=== PATIENT | male | born 1990 | race Caucasian/White ===

== ENCOUNTER 2019-06-02 07:23 | Emergency (ER) | payer BC ==
[2019-06-02 07:38] VITALS: BP 132/74; PULSE 75; RESP 18; TEMP 98.3
--- NOTE | 2019-06-02 07:46 | ED ---
General Adult HPI - General Chief complaint: Abdominal Pain Stated complaint: ABDOMINAL PAIN Time Seen by Provider: 06/02/19 07:25 Source: patient, RN notes reviewed Mode of arrival: ambulatory Limitations: no limitations - History of Present Illness Initial comments: This is a 29-year-old male who presents emergency Department complaining of abdominal cramping starting yesterday. Patient states he has also had diarrhea during that timeframe. Patient denies any nausea vomiting. Patient denies any fever chills. Patient states the pain is definitely worse right after he eats. Patient also states the pain is relieved with having defecated. Patient denies any abdominal pain currently. Patient denies any chest pain difficulty breathing first breath per patient denies any dysuria hematuria urinary frequency. Patient denies any back pain. - Related Data Allergies Allergy/AdvReac Type Severity Reaction Status Date / Time No Known Allergies Allergy Verified 06/02/19 07:25 Review of Systems ROS Statement: Those systems with pertinent positive or pertinent negative responses have been documented in the HPI. ROS Other: All systems not noted in ROS Statement are negative. Past Medical History Past Medical History: No Reported History History of Any Multi-Drug Resistant Organisms: None Reported Additional Past Surgical History / Comment(s): ACL repair L knee Past Psychological History: No Psychological Hx Reported Smoking Status: Never smoker Past Alcohol Use History: None Reported Past Drug Use History: Marijuana General Exam - General Exam Comments Initial Comments: GENERAL: Patient is well-developed and well-nourished. Patient is nontoxic and well- hydrated and is in mild distress. ENT: Neck is soft and supple. No significant lymphadenopathy is noted. Oropharynx is clear. Moist mucous membranes. Neck has full range of motion without eliciting any pain. EYES: The sclera were anicteric and conjunctiva were pink and moist. Extraocular movements were intact and pupils were equal round and reactive to light. Eyelids were unremarkable. PULMONARY: Unlabored respirations. Good breath sounds bilaterally. No audible rales rhonchi or wheezing was noted. CARDIOVASCULAR: There is a regular rate and rhythm without any murmurs gallops or rubs. ABDOMEN: Soft and nontender with normal bowel sounds. SKIN: Skin is clear with no lesions or rashes and otherwise unremarkable. NEUROLOGIC: Patient is alert and oriented x3. Cranial nerves II through XII are grossly intact. Motor and sensory are also intact. Normal speech, volume and content. Symmetrical smile. MUSCULOSKELETAL: Normal extremities with adequate strength and full range of motion. LYMPHATICS: No significant lymphadenopathy is noted PSYCHIATRIC: Normal psychiatric evaluation. Limitations: no limitations Course Vital Signs 06/02/19 07:25 Temperature 98.3 F Pulse Rate 75 Respiratory 18 Rate Blood Pressure 132/74 O2 Sat by Pulse 97 Oximetry Disposition Clinical Impression: Acute diarrhea, Abdominal cramping Disposition: HOME SELF-CARE Condition: Good Instructions (If sedation given, give patient instructions): Acute Diarrhea (ED) Is patient prescribed a controlled substance at d/c from ED?: No Referrals: None,Stated [Primary Care Provider] - 1-2 days Time of Disposition: 07:45
== END 2019-06-02 08:00 | disposition home or self-care (01) ==
LOC: EC 07:23
DX: R19.7 Diarrhea, unspecified (principal)
CPT/HCPCS: 99283

== ENCOUNTER 2019-12-01 10:16 | Emergency (ER) | payer BC, OTHER ==
[2019-12-01 10:31] VITALS: BP 156/90; PULSE 87; RESP 16; TEMP 98
[2019-12-01] MEDS ORDERED: DIPH,PERTUS(ACELL)TETVAC-LF 0.5 ML VIAL IM ONE (10:45)
[2019-12-01] MEDS ORDERED: LIDOCAINE 1% INJ 10MG/ML (20 ML MDV) SQ ONE (10:45)
--- NOTE | 2019-12-01 10:48 | ED ---
Wound/Laceration HPI - General Chief Complaint: Wound/Laceration Stated Complaint: right arm laceration-[facility] Time Seen by Provider: 12/01/19 10:40 Source: patient Mode of arrival: ambulatory Limitations: no limitations - History of Present Illness Initial Comments: Patient is a 29-year-old male presenting to the emergency Department with complaints of a laceration to his right forearm. Patient states she was at work when he slipped and cut his right proximal forearm/elbow on a thin piece of metal. Patient is not sure of his last tetanus vaccine. He is not on blood thinners. Bleeding is controlled at this time with a bandage and wrapped. Patient denies any other injuries today. Upon arrival to the ER his vitals are stable. - Related Data Previous Rx's Medication Instructions Recorded Cephalexin [Keflex] 500 mg PO BID 3 Days #6 cap 12/01/19 Allergies Allergy/AdvReac Type Severity Reaction Status Date / Time No Known Allergies Allergy Verified 12/01/19 10:31 Review of Systems ROS Statement: Those systems with pertinent positive or pertinent negative responses have been documented in the HPI. ROS Other: All systems not noted in ROS Statement are negative. Past Medical History Past Medical History: No Reported History History of Any Multi-Drug Resistant Organisms: None Reported Additional Past Surgical History / Comment(s): ACL repair L knee Past Psychological History: No Psychological Hx Reported Smoking Status: Never smoker Past Alcohol Use History: None Reported Past Drug Use History: Marijuana General Exam - General Exam Comments Initial Comments: GENERAL: Well-appearing, well-nourished and in no acute distress. HEAD: Atraumatic, normocephalic. EYES: Pupils equal round and reactive to light, extraocular movements intact, sclera anicteric, conjunctiva are normal. ENT: Moist mucous membranes. NECK: Normal range of motion, supple without lymphadenopathy or JVD. LUNGS: Breath sounds clear to auscultation bilaterally and equal. No wheezes rales or rhonchi. HEART: Regular rate and rhythm without murmurs, rubs or gallops. ABDOMEN: Soft, nontender, normoactive bowel sounds. No guarding, no rebound. No masses appreciated. EXTREMITIES: Patient has full right elbow range of motion. Sensation is equal and bilateral. No pitting or edema. No clubbing or cyanosis. SKIN: Warm, Dry, normal turgor, no rashes. Patient has a 6 cm laceration to the dorsal aspect of the proximal right forearm, just distal to the elbow joint. No tendon/muscle involvement. Limitations: no limitations Course Vital Signs 12/01/19 10:29 Temperature 98 F Pulse Rate 87 Respiratory 16 Rate Blood Pressure 156/90 O2 Sat by Pulse 98 Oximetry Procedures - Laceration Laceration #1 Consent Obtained: verbal consent Indication: laceration Site: upper extremity (Right forearm) Size (cm): 6 Description: linear Depth: simple, single layer Anesthetic Used: lidocaine 1% Anesthesia Technique: local infiltration Amount (mls): 4 Pre-repair: irrigated extensively (1 L sterile water.) Type of Sutures: nylon, vicryl Size of Sutures: 4-0 Number of Sutures: 11 (3 internal Vicryl sutures, 8 external nylon sutures, total of 11) Technique: simple, interrupted Patient Tolerated Procedure: well Medical Decision Making - Medical Decision Making Patient is a 29-year-old male presenting with a 6 cm laceration to the dorsal aspect of the right proximal forearm, just distal to the right elbow joint. Bleeding is controlled this time. Tetanus shot was updated today. Patient's wound was irrigated with 1 L of sterile water. Patient's wound was closed with 3 internal 4-0, Vicryl sutures, 8 external 4-0 nylon sutures. Patient tolerate procedure well. Patient's wound was bandaged. There is no active bleeding at this time. Patient is stable for discharge. Patient will be started on Keflex. He is in agreement with this plan of care. Sutures need to removed in 7-10 days. Return parameters were discussed with the patient and he verbalized understanding. Case discussed with Dr. Caceres. Disposition Clinical Impression: Laceration of right forearm Disposition: HOME SELF-CARE Condition: Stable Instructions (If sedation given, give patient instructions): Care For Your Stitches (ED) Additional Instructions: Please return to the Emergency Department if symptoms worsen or any other concerns. Stitches need to removed in 7-10 days. Keep area dry. Cover while working. Take antibiotics as prescribed. Prescriptions: Cephalexin [Keflex] 500 mg PO BID 3 Days #6 cap Is patient prescribed a controlled substance at d/c from ED?: No Referrals: None,Stated [Primary Care Provider] - 1-2 days
--- NOTE | 2019-12-01 11:15 | XR ---
EXAMINATION TYPE: XR elbow limited RT DATE OF EXAM: 12/01/2019 COMPARISON: None HISTORY: Laceration posterior right elbow TECHNIQUE: Right elbow is examined in 2 views FINDINGS: Anterior fat pad is normal. No elevation of posterior fat pad is evident. Soft tissues over the dorsal olecranon has some soft tissue injury. No radiopaque foreign bodies are evident. No acute osseous abnormality is evident. IMPRESSION: 1. No radiopaque foreign bodies. 2. No acute osseous abnormality.
== END 2019-12-01 11:30 | disposition home or self-care (01) ==
LOC: EC 10:16
DX: S51.811A Laceration without foreign body of right forearm, initial encounter (principal); Z23 Encounter for immunization; W26.8XXA Contact with other sharp object(s), not elsewhere classified, initial encounter; Y92.69 Other specified industrial and construction area as the place of occurrence of the external cause; Y99.0 Civilian activity done for income or pay
CPT/HCPCS: 73070; 90715; 99283; 12002; 90471; J2001

== ENCOUNTER 2020-07-13 06:47 | Emergency (ER) | payer BC ==
[2020-07-13 06:56] VITALS: RESP 18; TEMP 98
[2020-07-13] MEDS ORDERED: IPRATROPIUM-ALBUTEROL 3 ML NEB INHALATION STA (07:11)
[2020-07-13] MEDS ORDERED: LORazepam 2 MG/ML INJ IV STA (07:11)
[2020-07-13] MEDS ORDERED: SODIUM CHLORIDE 0.9% 1,000 ML IV STA (07:11)
--- NOTE | 2020-07-13 07:24 | ED ---
General Adult HPI - General Chief complaint: Shortness of Breath Stated complaint: sob Time Seen by Provider: 07/13/20 06:56 Source: patient, RN notes reviewed Mode of arrival: ambulatory Limitations: no limitations - History of Present Illness Initial comments: This a 30-year-old male presents emergency Department chief complaint shortness of breath. Patient states he's been having worsening symptoms for the last couple Weeks. Patient states that today he was going to work in symptoms were unbearable. Patient states he has remembered that he's had symptoms for several months. He was seen at urgent care yesterday in which she had chest x-ray and was told that there was something in his left lung and that he scheduled for CT on Wednesday. Patient states is very concerned about these findings states that he's become more anxious. Patient also states that he is present from an asthma complication one week ago which is also made him concerned. Patient states that he smokes marijuana denies any prior lung disease. Denies fevers chills, cold-like symptoms. He states that sometimes eating makes his symptoms worse denies any abdominal pain. Patient states that he feels that he has to take a deep breath to get air under alleviated. Patient denies any current chest pain no prior cardiac disease. - Related Data Home Medications Medication Instructions Recorded Confirmed No Known Home Medications 07/13/20 07/13/20 Allergies Allergy/AdvReac Type Severity Reaction Status Date / Time No Known Allergies Allergy Verified 07/13/20 08:36 Review of Systems ROS Statement: Those systems with pertinent positive or pertinent negative responses have been documented in the HPI. ROS Other: All systems not noted in ROS Statement are negative. Past Medical History Past Medical History: No Reported History History of Any Multi-Drug Resistant Organisms: MRSA Date of last positivie culture/infection: 06/07/20 MDRO Source:: MRSA GENITAL Additional Past Surgical History / Comment(s): ACL repair L knee Past Psychological History: No Psychological Hx Reported Smoking Status: Never smoker Past Alcohol Use History: None Reported Past Drug Use History: Marijuana General Exam Limitations: no limitations General appearance: alert, in no apparent distress Head exam: Present: atraumatic, normocephalic, normal inspection Eye exam: Present: normal appearance, PERRL, EOMI. Absent: scleral icterus, conjunctival injection, periorbital swelling ENT exam: Present: normal exam, normal oropharynx, mucous membranes moist Neck exam: Present: normal inspection, full ROM. Absent: tenderness, meningismu s, lymphadenopathy Respiratory exam: Present: normal lung sounds bilaterally. Absent: respiratory distress, wheezes, rales, rhonchi, stridor Cardiovascular Exam: Present: regular rate, normal rhythm, normal heart sounds. Absent: systolic murmur, diastolic murmur, rubs, gallop, clicks GI/Abdominal exam: Present: soft, normal bowel sounds. Absent: distended, tenderness, guarding, rebound, rigid Extremities exam: Present: other (Lower extremity pulses equal bilaterally). Absent: pedal edema, calf tenderness Neurological exam: Present: alert, oriented X3 Psychiatric exam: Present: anxious Skin exam: Present: warm, dry, intact, normal color. Absent: rash Course Vital Signs 07/13/20 07/13/20 07/13/20 06:52 07:00 07:39 Temperature 98 F Pulse Rate 77 63 Respiratory 18 18 Rate Blood Pressure 133/82 O2 Sat by Pulse 99 Oximetry 07/13/20 07/13/20 07:50 08:42 Temperature Pulse Rate 65 63 Respiratory 18 Rate Blood Pressure 123/55 O2 Sat by Pulse 99 Oximetry EKG Findings - EKG Comments: EKG Findings:: 17:08 normal sinus rhythm rate of 77 MA 132 QRS 90 QT status QTC 384/434 Medical Decision Making - Medical Decision Making 30-year-old male presented for dyspnea. Patient's been having ongoing symptoms. Patient evaluated by urgent care/PCP. Patient was scheduled for outpatient CT was performed today with no acute findings. Patient did have improvement after DuoNeb treatment and Ativan. There is component of bronchospasm and anxiety. Patient will follow-up with pulmonology will return for any worsening symptoms. Patient presents from discharge and follow-up plan - Lab Data Result diagrams: 07/13/20 07:22 07/13/20 07:22 Lab Results 07/13/20 07/13/20 07/13/20 Range/Units 07:22 07:22 07:22 WBC 8.9 (3.8-10.6) k/uL RBC 5.48 (4.30-5.90) m/uL Hgb 16.3 (13.0-17.5) gm/dL Hct 48.9 (39.0-53.0) % MCV 89.2 (80.0-100.0) fL MCH 29.7 (25.0-35.0) pg MCHC 33.3 (31.0-37.0) g/dL RDW 13.3 (11.5-15.5) % Plt Count 352 (150-450) k/uL Neutrophils % 61 % Lymphocytes % 30 % Monocytes % 6 % Eosinophils % 2 % Basophils % 0 % Neutrophils # 5.4 (1.3-7.7) k/uL Lymphocytes # 2.6 (1.0-4.8) k/uL Monocytes # 0.5 (0-1.0) k/uL Eosinophils # 0.1 (0-0.7) k/uL Basophils # 0.0 (0-0.2) k/uL Sodium 139 (137-145) mmol/L Potassium 4.6 (3.5-5.1) mmol/L Chloride 105 (98-107) mmol/L Carbon Dioxide 23 (22-30) mmol/L Anion Gap 11 mmol/L BUN 12 (9-20) mg/dL Creatinine 0.79 (0.66-1.25) mg/dL Est GFR (CKD-EPI)AfAm >90 (>60 ml/min/1.73 sqM) Est GFR (CKD-EPI)NonAf >90 (>60 ml/min/1.73 sqM) Glucose 111 H (74-99) mg/dL Plasma Lactic Acid Rubens 1.9 (0.7-2.0) mmol/L Calcium 9.7 (8.4-10.2) mg/dL Magnesium 2.0 (1.6-2.3) mg/dL Total Bilirubin 2.0 H (0.2-1.3) mg/dL AST 35 (17-59) U/L ALT 35 (4-49) U/L Alkaline Phosphatase 61 (38-126) U/L Troponin I (0.000-0.034) ng/mL NT-Pro-B Natriuret Pep pg/mL Total Protein 8.2 (6.3-8.2) g/dL Albumin 4.8 (3.5-5.0) g/dL 07/13/20 07/13/20 Range/Units 07:22 07:22 WBC (3.8-10.6) k/uL RBC (4.30-5.90) m/uL Hgb (13.0-17.5) gm/dL Hct (39.0-53.0) % MCV (80.0-100.0) fL MCH (25.0-35.0) pg MCHC (31.0-37.0) g/dL RDW (11.5-15.5) % Plt Count (150-450) k/uL Neutrophils % % Lymphocytes % % Monocytes % % Eosinophils % % Basophils % % Neutrophils # (1.3-7.7) k/uL Lymphocytes # (1.0-4.8) k/uL Monocytes # (0-1.0) k/uL Eosinophils # (0-0.7) k/uL Basophils # (0-0.2) k/uL Sodium (137-145) mmol/L Potassium (3.5-5.1) mmol/L Chloride (98-107) mmol/L Carbon Dioxide (22-30) mmol/L Anion Gap mmol/L BUN (9-20) mg/dL Creatinine (0.66-1.25) mg/dL Est GFR (CKD-EPI)AfAm (>60 ml/min/1.73 sqM) Est GFR (CKD-EPI)NonAf (>60 ml/min/1.73 sqM) Glucose (74-99) mg/dL Plasma Lactic Acid Rubens (0.7-2.0) mmol/L Calcium (8.4-10.2) mg/dL Magnesium (1.6-2.3) mg/dL Total Bilirubin (0.2-1.3) mg/dL AST (17-59) U/L ALT (4-49) U/L Alkaline Phosphatase (38-126) U/L Troponin I <0.012 (0.000-0.034) ng/mL NT-Pro-B Natriuret Pep 39 pg/mL Total Protein (6.3-8.2) g/dL Albumin (3.5-5.0) g/dL Disposition Clinical Impression: Dyspnea Disposition: HOME SELF-CARE Condition: Stable Instructions (If sedation given, give patient instructions): Bronchospasm (ED), Dyspnea (ED) Additional Instructions: Please return to the Emergency Department if symptoms worsen or any other concerns. Is patient prescribed a controlled substance at d/c from ED?: No Referrals: None,Stated [Primary Care Provider] - 1-2 days Cassandra Harley MD [STAFF PHYSICIAN] - 1-2 days Time of Disposition: 08:45
[2020-07-13 07:52] LABS: Basophils % (A) 0 %; Eosinophils # (A) 0.1 k/uL (0-0.7); Eosinophils % (A) 2 %; HCT 48.9 % (39.0-53.0); HGB 16.3 gm/dL (13.0-17.5); Lymphocytes # (A) 2.6 k/uL (1.0-4.8); Lymphocytes % (A) 30 %; MCH 29.7 pg (25.0-35.0); MCHC 33.3 g/dL (31.0-37.0); MCV 89.2 fL (80.0-100.0); Mean Platelet Volume 6.5; Monocytes # (A) 0.5 k/uL (0-1.0); Monocytes % (A) 6 %; Neutrophils # (A) 5.4 k/uL (1.3-7.7); Neutrophils % (A) 61 %; Platelet Count 352 k/uL (150-450); RBC 5.48 m/uL (4.30-5.90); RDW 13.3 % (11.5-15.5); WBC 8.9 k/uL (3.8-10.6)
[2020-07-13 07:59] LABS: ALT 35 U/L (4-49); AST 35 U/L (17-59); African American GFR (CKD) >90 (>60 ml/min/1.73 sqM); Albumin 4.8 g/dL (3.5-5.0); Alkaline Phosphatase 61 U/L (38-126); Anion Gap 11 mmol/L; Blood Urea Nitrogen 12 mg/dL (9-20); Calcium 9.7 mg/dL (8.4-10.2); Carbon Dioxide 23 mmol/L (22-30); Chloride 105 mmol/L (98-107); Glucose 111 mg/dL (74-99); Non-African American GFR(CKD) >90 (>60 ml/min/1.73 sqM); Potassium 4.6 mmol/L (3.5-5.1); Sodium 139 mmol/L (137-145); Total Protein 8.2 g/dL (6.3-8.2)
--- NOTE | 2020-07-13 08:34 | CT ---
EXAMINATION TYPE: CT chest angio for PE DATE OF EXAM: 07/13/2020 COMPARISON: HISTORY: PE; SOB CT DLP: 587.7 mGycm Automated exposure control for dose reduction was used. CONTRAST: CT Chest for pulmonary embolism performed with without and with IV Contrast, patient injected with 10 0 ml mL of Isovue 370. FINDINGS: LUNGS: The lungs are grossly clear, there is no concerning parenchymal mass or nodule identified. T here is no pleural effusion or pneumothorax seen. The tracheobronchial tree is patent. Tiny subpleur al 1 mm nodule right upper lobe. MEDIASTINUM: There is satisfactory enhancement of the main pulmonary artery. Limitation in evaluation the distal branches There are no greater than 1 cm hilar or mediastinal lymph nodes. No pericardia l effusion is seen. The right cardiophrenic angle is a small nodule in short axis of 5 mm likely rel ated to small cardiophrenic angle lymph node. Aorta of normal caliber. OTHER: There is slightly reduced attenuation correlate for hepatic steatosis. Appearance of the sple en likely related to the phase of imaging. Correlate clinically. IMPRESSION: No evidence of acute infiltrate or central pulmonary embolism. Limitation of the left upper lobe dist al branches of the pulmonary artery.
[2020-07-13 08:43] VITALS: BP 123/55; PULSE 63
== END 2020-07-13 08:55 | disposition home or self-care (01) ==
LOC: EC 06:47
DX: R06.02 Shortness of breath (principal); Z86.14 Personal history of Methicillin resistant Staphylococcus aureus infection
CPT/HCPCS: 36415; 94640; 93005; 83880; 80053; 83605; 83735; 84484; 85025; 71275; 99285; 96374; 96361; J2060; Q9967

== ENCOUNTER → 2020-07-18 | Outpatient (CLI) | payer BC ==
--- NOTE | 2020-07-18 17:42 | P.STRESS ---
- Stress Test Note Stress Test Results/Findings: Exam Performed: stress echo exercise Exam Date: 07/18/20 Reason for Exam: CP, BRENDA Height: 5 ft 5 in Weight: 109 kg Protocol: STRESS ECHO EXERCISE Stage: 3 Duration of Exercise: 9:00 Resting Heart Rate: 72 Resting Blood Pressure: 131/79 Maximum Achieved Heart Rate: 161 Maximum Achieved Blood Pressure: 194/62 85% PMHR: 160 100% PMHR: 188 METS: 10.3 Technologist Comment: Stress Test Results/Findings: Patient underwent exercise stress echo with a Michael protocol treadmill stress test. Patient exercised into Stage 3 for a total of 9 minutes reaching a total of 10.3 METS. Patient's maximum heart rate was 161 which represented 85 % age- predicted maximum heart rate. Stress EKG portion: At baseline patient's EKG showed normal sinus rhythm, normal axis, no significant ST or T-wave abnormalities. At peak exercise, EKG showed no significant change from baseline. Stress echo portion: 2-D echocardiogram was performed in the parasternal long, personal short, apical 2 and apical four-chamber views at rest, peak exercise and in recovery. At baseline, echocardiogram showed left ventricular ejection fraction 55 % without wall motion abnormalities. With peak exercise, echocardiogram shows improvement in left ventricular ejection fraction, increase contractility, decrease in left ventricular dimension without wall motion abnormalities consistent with a normal response to exercise. Conclusions: 1. Normal EKG and echo response to exercise without evidence of inducible ischemia. 2. Good exercise capacity.
== END | disposition home or self-care (01) ==
LOC: RADNMMAIN 08:57
PROVIDERS: ATTEND Internal Medicine
DX: I20.9 Angina pectoris, unspecified (principal)
CPT/HCPCS: 93351

== ENCOUNTER 2022-07-12 03:35 | Emergency (ER) | payer BC, OTHER ==
[2022-07-12 03:43] VITALS: TEMP 97.8
[2022-07-12 03:51] LABS: Glucose,Whole Blood 119 mg/dL (70-110)
[2022-07-12] MEDS ORDERED: SODIUM CHLORIDE 0.9% 500 ML 500 ML IV STA (04:16)
[2022-07-12] MEDS ORDERED: ONDANSETRON 4 MG/2 ML VIAL IVP STA (04:24)
[2022-07-12 04:49] LABS: Basophils # (A) 0.1 k/uL (0-0.2); Basophils % (A) 1 %; Eosinophils # (A) 0.1 k/uL (0-0.7); Eosinophils % (A) 1 %; HCT 46.4 % (39.0-53.0); HGB 16.3 gm/dL (13.0-17.5); Lymphocytes # (A) 3.7 k/uL (1.0-4.8); Lymphocytes % (A) 34 %; MCH 30.3 pg (25.0-35.0); MCHC 35.1 g/dL (31.0-37.0); MCV 86.1 fL (80.0-100.0); Mean Platelet Volume 6.9; Monocytes # (A) 0.6 k/uL (0-1.0); Monocytes % (A) 6 %; Neutrophils # (A) 6.1 k/uL (1.3-7.7); Neutrophils % (A) 57 %; Platelet Count 349 k/uL (150-450); RBC 5.39 m/uL (4.30-5.90); RDW 12.4 % (11.5-15.5); WBC 10.8 k/uL (3.8-10.6)
--- NOTE | 2022-07-12 04:54 | XR ---
EXAMINATION TYPE: XR chest 2V DATE OF EXAM: 07/12/2022 COMPARISON: NONE HISTORY: Weakness TECHNIQUE: 2 views FINDINGS: Heart and mediastinum are normal. Lungs are clear. Diaphragm is normal. Bony thorax is inta ct. IMPRESSION: Normal chest
--- NOTE | 2022-07-12 04:55 | CT ---
EXAMINATION TYPE: CT brain wo con DATE OF EXAM: 07/12/2022 COMPARISON: None HISTORY: Weakness. Dizziness CT DLP: 1182.3 mGycm Automated exposure control for dose reduction was used. Images of the brain obtained with no contrast. Ventricles have normal size. There is no mass effect or midline shift. No sign of intracranial hemorr martín. No evidence of cerebral edema. Calvarium is intact. There is normal aeration of the mastoid sin uses. The skull base is intact. IMPRESSION: Normal unenhanced head CT scan.
[2022-07-12 05:00] LABS: ALT 30 U/L (4-49); AST 28 U/L (17-59); African American GFR (CKD) >90 (>60 ml/min/1.73 sqM); Albumin 4.8 g/dL (3.5-5.0); Alkaline Phosphatase 60 U/L (38-126); Amylase 78 U/L (30-110); Anion Gap 12 mmol/L; Blood Urea Nitrogen 16 mg/dL (9-20); Calcium 9.1 mg/dL (8.4-10.2); Carbon Dioxide 23 mmol/L (22-30); Chloride 101 mmol/L (98-107); Glucose 134 mg/dL (74-99); Lipase 606 U/L (23-300); Non-African American GFR(CKD) >90 (>60 ml/min/1.73 sqM); Sodium 136 mmol/L (137-145); Total Bilirubin 1.1 mg/dL (0.2-1.3); Total Protein 7.6 g/dL (6.3-8.2)
--- NOTE | 2022-07-12 07:10 | ED ---
Dizziness HPI - General Source: patient Mode of arrival: ambulatory Limitations: no limitations - History of Present Illness MD Complaint: lightheadedness -: days(s) Timing: gradual onset Description: lightheadedness History of Same: No Severity: moderate Improves With: nothing Worsens With: movement <Manish Rivera - Last Filed: 07/12/22 07:23> <Ciro Merchant - Last Filed: 07/12/22 08:18> - General Chief Complaint: Dizziness Stated Complaint: Dizziness Time Seen by Provider: 07/12/22 04:01 - History of Present Illness Initial Comments: This patient is a 32-year-old man who presents with complaint that he has not been feeling well going back approximately one week. Patient states that he has slowly been feeling worse. He has had some mild headaches and lightheadedness. He states that he had been putting things in his son's hockey bag and when he stood up he felt like he was going to pass out. He did have episodic of nausea. (Manish Rivera) - Related Data Previous Rx's Medication Instructions Recorded Albuterol Sulfate [Proair Hfa] 1 - 2 puff INHALATION Q4HR PRN #1 07/13/20 inhaler Metoclopramide HCl [Reglan] 10 mg PO Q6HR PRN #15 tablet 07/12/22 Allergies Allergy/AdvReac Type Severity Reaction Status Date / Time No Known Allergies Allergy Verified 07/13/20 08:36 Review of Systems ROS Other: All systems not noted in ROS Statement are negative. Constitutional: Reports: weakness. Denies: fever, chills Eyes: Denies: vision change Respiratory: Denies: cough, dyspnea Cardiovascular: Reports: syncope (Near syncope). Denies: chest pain, palpitations, orthopnea, edema Gastrointestinal: Reports: nausea. Denies: abdominal pain, vomiting, diarrhea, constipation Genitourinary: Denies: dysuria, hematuria Musculoskeletal: Denies: back pain Skin: Denies: rash Neurological: Reports: headache. Denies: weakness, numbness <Manish Rivera - Last Filed: 07/12/22 07:23> ROS Other: All systems not noted in ROS Statement are negative. <Ciro Merchant - Last Filed: 07/12/22 08:18> ROS Statement: Those systems with pertinent positive or pertinent negative responses have been documented in the HPI. Past Medical History Past Medical History: No Reported History History of Any Multi-Drug Resistant Organisms: MRSA Date of last positivie culture/infection: 06/07/20 MDRO Source:: MRSA GENITAL Additional Past Surgical History / Comment(s): ACL repair L knee Past Psychological History: No Psychological Hx Reported Smoking Status: Never smoker Past Alcohol Use History: None Reported Past Drug Use History: Marijuana <NicoleManish - Last Filed: 07/12/22 07:23> General Exam Limitations: no limitations General appearance: alert, in no apparent distress Head exam: Present: atraumatic, normocephalic Eye exam: Present: normal appearance. Absent: scleral icterus, conjunctival injection ENT exam: Present: mucous membranes dry Neck exam: Present: normal inspection, full ROM Respiratory exam: Present: normal lung sounds bilaterally. Absent: respiratory distress, wheezes, rales, rhonchi, stridor Cardiovascular Exam: Present: regular rate, normal rhythm, normal heart sounds. Absent: systolic murmur, diastolic murmur, rubs, gallop GI/Abdominal exam: Present: soft, tenderness (Mild epigastric and right upper quadrant tenderness without rebound or guarding). Absent: distended, guarding, rebound, rigid, mass, pulsatile mass, hernia Extremities exam: Present: normal inspection, normal capillary refill. Absent: pedal edema, calf tenderness Back exam: Present: normal inspection Neurological exam: Present: alert, normal gait Skin exam: Present: warm, dry, intact, normal color. Absent: rash <NicoleManish - Last Filed: 07/12/22 07:23> Course Vital Signs 07/12/22 07/12/22 07/12/22 03:38 05:00 07:27 Temperature 97.8 F Pulse Rate 72 70 68 Respiratory 18 17 18 Rate Blood Pressure 132/85 130/68 130/86 O2 Sat by Pulse 98 98 96 Oximetry Medical Decision Making - Lab Data Result diagrams: 07/12/22 04:37 07/12/22 04:37 <NicoleManish - Last Filed: 07/12/22 07:23> - Lab Data Result diagrams: 07/12/22 04:37 07/12/22 04:37 - Radiology Data Radiology results: report reviewed (Abdominal ultrasound shows limited exam, possible hepatocellular disease. Gallbladder within normal limits. Computed tomography scan of the brain shows normal unenhanced scan.), image reviewed (Chest x-ray shows no acute process) <Ciro Merchant - Last Filed: 07/12/22 08:18> - Medical Decision Making Patient reevaluated and resting comfortably at bedside. Patient denies abdominal pain. Abdomen soft and nontender. No dizziness at this time. Patient family updated on results and need for follow-up. Patient does request nausea medication (Ciro Merchant) - Lab Data Lab Results 07/12/22 07/12/22 07/12/22 Range/Units 03:50 04:37 04:37 WBC 10.8 H (3.8-10.6) k/uL RBC 5.39 (4.30-5.90) m/uL Hgb 16.3 (13.0-17.5) gm/dL Hct 46.4 (39.0-53.0) % MCV 86.1 (80.0-100.0) fL MCH 30.3 (25.0-35.0) pg MCHC 35.1 (31.0-37.0) g/dL RDW 12.4 (11.5-15.5) % Plt Count 349 (150-450) k/uL MPV 6.9 Neutrophils % 57 % Lymphocytes % 34 % Monocytes % 6 % Eosinophils % 1 % Basophils % 1 % Neutrophils # 6.1 (1.3-7.7) k/uL Lymphocytes # 3.7 (1.0-4.8) k/uL Monocytes # 0.6 (0-1.0) k/uL Eosinophils # 0.1 (0-0.7) k/uL Basophils # 0.1 (0-0.2) k/uL Sodium 136 L (137-145) mmol/L Potassium 4.0 (3.5-5.1) mmol/L Chloride 101 (98-107) mmol/L Carbon Dioxide 23 (22-30) mmol/L Anion Gap 12 mmol/L BUN 16 (9-20) mg/dL Creatinine 0.74 (0.66-1.25) mg/dL Est GFR (CKD-EPI)AfAm >90 (>60 ml/min/1.73 sqM) Est GFR (CKD-EPI)NonAf >90 (>60 ml/min/1.73 sqM) Glucose 134 H (74-99) mg/dL POC Glucose (mg/dL) 119 H (70-110) mg/dL POC Glu Real Estate Asset Manager ID Martine Sarkar Lactic Ac Sepsis Rflx Plasma Lactic Acid Rubens (0.7-2.0) mmol/L Calcium 9.1 (8.4-10.2) mg/dL Magnesium 2.0 (1.6-2.3) mg/dL Total Bilirubin 1.1 (0.2-1.3) mg/dL AST 28 (17-59) U/L ALT 30 (4-49) U/L Alkaline Phosphatase 60 (38-126) U/L Troponin I (0.000-0.034) ng/mL NT-Pro-B Natriuret Pep pg/mL Total Protein 7.6 (6.3-8.2) g/dL Albumin 4.8 (3.5-5.0) g/dL Amylase 78 (30-110) U/L Lipase 606 H (23-300) U/L Coronavirus (PCR) (Not Detectd) Influenza Type A RNA (Not Detectd) Influenza Type B (PCR) (Not Detectd) 07/12/22 07/12/22 07/12/22 Range/Units 04:37 04:37 04:37 WBC (3.8-10.6) k/uL RBC (4.30-5.90) m/uL Hgb (13.0-17.5) gm/dL Hct (39.0-53.0) % MCV (80.0-100.0) fL MCH (25.0-35.0) pg MCHC (31.0-37.0) g/dL RDW (11.5-15.5) % Plt Count (150-450) k/uL MPV Neutrophils % % Lymphocytes % % Monocytes % % Eosinophils % % Basophils % % Neutrophils # (1.3-7.7) k/uL Lymphocytes # (1.0-4.8) k/uL Monocytes # (0-1.0) k/uL Eosinophils # (0-0.7) k/uL Basophils # (0-0.2) k/uL Sodium (137-145) mmol/L Potassium (3.5-5.1) mmol/L Chloride (98-107) mmol/L Carbon Dioxide (22-30) mmol/L Anion Gap mmol/L BUN (9-20) mg/dL Creatinine (0.66-1.25) mg/dL Est GFR (CKD-EPI)AfAm (>60 ml/min/1.73 sqM) Est GFR (CKD-EPI)NonAf (>60 ml/min/1.73 sqM) Glucose (74-99) mg/dL POC Glucose (mg/dL) (70-110) mg/dL POC Glu Real Estate Asset Manager ID Lactic Ac Sepsis Rflx Plasma Lactic Acid Rubens 2.9 H* (0.7-2.0) mmol/L Calcium (8.4-10.2) mg/dL Magnesium (1.6-2.3) mg/dL Total Bilirubin (0.2-1.3) mg/dL AST (17-59) U/L ALT (4-49) U/L Alkaline Phosphatase (38-126) U/L Troponin I <0.012 (0.000-0.034) ng/mL NT-Pro-B Natriuret Pep 29 pg/mL Total Protein (6.3-8.2) g/dL Albumin (3.5-5.0) g/dL Amylase (30-110) U/L Lipase (23-300) U/L Coronavirus (PCR) (Not Detectd) Influenza Type A RNA (Not Detectd) Influenza Type B (PCR) (Not Detectd) 07/12/22 07/12/22 07/12/22 Range/Units 04:49 04:49 05:01 WBC (3.8-10.6) k/uL RBC (4.30-5.90) m/uL Hgb (13.0-17.5) gm/dL Hct (39.0-53.0) % MCV (80.0-100.0) fL MCH (25.0-35.0) pg MCHC (31.0-37.0) g/dL RDW (11.5-15.5) % Plt Count (150-450) k/uL MPV Neutrophils % % Lymphocytes % % Monocytes % % Eosinophils % % Basophils % % Neutrophils # (1.3-7.7) k/uL Lymphocytes # (1.0-4.8) k/uL Monocytes # (0-1.0) k/uL Eosinophils # (0-0.7) k/uL Basophils # (0-0.2) k/uL Sodium (137-145) mmol/L Potassium (3.5-5.1) mmol/L Chloride (98-107) mmol/L Carbon Dioxide (22-30) mmol/L Anion Gap mmol/L BUN (9-20) mg/dL Creatinine (0.66-1.25) mg/dL Est GFR (CKD-EPI)AfAm (>60 ml/min/1.73 sqM) Est GFR (CKD-EPI)NonAf (>60 ml/min/1.73 sqM) Glucose (74-99) mg/dL POC Glucose (mg/dL) (70-110) mg/dL POC Glu Real Estate Asset Manager ID Lactic Ac Sepsis Rflx Y Plasma Lactic Acid Rubens (0.7-2.0) mmol/L Calcium (8.4-10.2) mg/dL Magnesium (1.6-2.3) mg/dL Total Bilirubin (0.2-1.3) mg/dL AST (17-59) U/L ALT (4-49) U/L Alkaline Phosphatase (38-126) U/L Troponin I (0.000-0.034) ng/mL NT-Pro-B Natriuret Pep pg/mL Total Protein (6.3-8.2) g/dL Albumin (3.5-5.0) g/dL Amylase (30-110) U/L Lipase (23-300) U/L Coronavirus (PCR) Not Detected (Not Detectd) Influenza Type A RNA Not Detected (Not Detectd) Influenza Type B (PCR) Not Detected (Not Detectd) 07/12/22 Range/Units 07:23 WBC (3.8-10.6) k/uL RBC (4.30-5.90) m/uL Hgb (13.0-17.5) gm/dL Hct (39.0-53.0) % MCV (80.0-100.0) fL MCH (25.0-35.0) pg MCHC (31.0-37.0) g/dL RDW (11.5-15.5) % Plt Count (150-450) k/uL MPV Neutrophils % % Lymphocytes % % Monocytes % % Eosinophils % % Basophils % % Neutrophils # (1.3-7.7) k/uL Lymphocytes # (1.0-4.8) k/uL Monocytes # (0-1.0) k/uL Eosinophils # (0-0.7) k/uL Basophils # (0-0.2) k/uL Sodium (137-145) mmol/L Potassium (3.5-5.1) mmol/L Chloride (98-107) mmol/L Carbon Dioxide (22-30) mmol/L Anion Gap mmol/L BUN (9-20) mg/dL Creatinine (0.66-1.25) mg/dL Est GFR (CKD-EPI)AfAm (>60 ml/min/1.73 sqM) Est GFR (CKD-EPI)NonAf (>60 ml/min/1.73 sqM) Glucose (74-99) mg/dL POC Glucose (mg/dL) (70-110) mg/dL POC Glu Real Estate Asset Manager ID Lactic Ac Sepsis Rflx Plasma Lactic Acid Rubens 1.4 (0.7-2.0) mmol/L Calcium (8.4-10.2) mg/dL Magnesium (1.6-2.3) mg/dL Total Bilirubin (0.2-1.3) mg/dL AST (17-59) U/L ALT (4-49) U/L Alkaline Phosphatase (38-126) U/L Troponin I (0.000-0.034) ng/mL NT-Pro-B Natriuret Pep pg/mL Total Protein (6.3-8.2) g/dL Albumin (3.5-5.0) g/dL Amylase (30-110) U/L Lipase (23-300) U/L Coronavirus (PCR) (Not Detectd) Influenza Type A RNA (Not Detectd) Influenza Type B (PCR) (Not Detectd) Disposition <Manish Rivera - Last Filed: 07/12/22 07:23> Is patient prescribed a controlled substance at d/c from ED?: No Time of Disposition: 08:18 <Ciro Merchant - Last Filed: 07/12/22 08:18> Clinical Impression: Dizziness, Nausea Disposition: HOME SELF-CARE Condition: Stable Instructions (If sedation given, give patient instructions): Dizziness (ED) Additional Instructions: Prescription for nausea medicine has been sent to your pharmacy. [id number] Antivert if needed. Please return for vomiting, abdominal pain, increased dizziness or weakness, worsening or change in symptoms or other concerns. These do have your primary care physician recheck your lipase level within the next week. Prescriptions: Metoclopramide HCl [Reglan] 10 mg PO Q6HR PRN #15 tablet PRN Reason: Nausea Referrals: Braulio Reid MD [STAFF PHYSICIAN] - 1-2 days
--- NOTE | 2022-07-12 07:56 | US ---
EXAMINATION TYPE: US abdomen limited DATE OF EXAM: 07/12/2022 COMPARISON: NONE CLINICAL HISTORY: Pain RUQ. TECHNIQUE: Multiple sonographic images of the right upper quadrant are obtained. FINDINGS: EXAM MEASUREMENTS: Liver Length: 13.8 cm Gallbladder Wall: 0.2 cm CBD: 0.5 cm Right Kidney: 11.0 x 5.0 x 5.6 cm [employer]PORATE GENERAL MANAGER NOTES: Pancreas: Obscured by bowel gas Liver: left lobe and adjacent to gallbladder show areas of probable focal fatty sparing, liver shows coarse echotexture Gallbladder: wnl Evidence for sonographic Duran's sign: no CBD: wnl Right Kidney: No hydronephrosis or masses seen No evident ascites in Negrete's pouch. IMPRESSION: There are some limitations to the exam. Correlate for possible hepatic steatosis, hepatocellular dise ase
[2022-07-12 08:33] VITALS: BP 128/84; PULSE 86; RESP 16
== END 2022-07-12 08:33 | disposition home or self-care (01) ==
LOC: EC 03:35
DX: R42 Dizziness and giddiness (principal); R11.0 Nausea; Z20.822 Contact with and (suspected) exposure to COVID-19
CPT/HCPCS: 36415; 93005; 83880; 80053; 82150; 83605; 83690; 83735; 84484; 85025; 87502; 87635; 71046; 76705; 70450; 99284; 96374; 96361; J2405